=== PATIENT | female | born 1995 | race Caucasian/White ===

== ENCOUNTER → 2016-06-02 | Outpatient (CLI) | payer BC ==
[~2016-06-02] MED LIST: LEVO137T3 PO; SULF800T23 PO
[2016-06-02 15:20] LABS: THYROID STIMULATING HORMONE 2.39 uIu/ml (0.300-4.500)
== END | disposition home or self-care (01) ==
LOC: C.LAB1850 12:51
PROVIDERS: ATTEND Internal Medicine Endocrinology, Diabetes & Metabolism
DX: E03.9 Hypothyroidism, unspecified (principal); E06.3 Autoimmune thyroiditis

== ENCOUNTER → 2016-09-10 | Outpatient (CLI) | payer BC ==
[2016-09-10 14:47] LABS: THYROID STIMULATING HORMONE 2.04 uIu/ml (0.300-4.500)
== END | disposition home or self-care (01) ==
LOC: C.LAB1850 11:32
PROVIDERS: ATTEND Internal Medicine Endocrinology, Diabetes & Metabolism
DX: E03.9 Hypothyroidism, unspecified (principal); E06.3 Autoimmune thyroiditis

== ENCOUNTER 2016-10-22 06:49 | Emergency (ER) | payer BC ==
[~2016-10-22] VITALS: Ht 175.3 cm; Wt 62.1 kg
[2016-10-22 06:52] VITALS: Ht 175.3 cm; Wt 62.1 kg
[2016-10-22] MEDS ORDERED: SODIUM CHLORIDE 0.9% 1000ML 1,000 ML IV STA (07:30)
[2016-10-22] MEDS ORDERED: LEVO137T3 PO (07:37)
[2016-10-22 07:59] LABS: PREG INTERNAL NEGATIVE QC NEG CLEAR BACKGROUND; PREG INTERNAL POSITIVE QC POS CONTROL LINE
[2016-10-22 08:06] LABS: URINE APPEARANCE CLOUDY (CLEAR); URINE BILIRUBIN NEG (NEG); URINE COLOR DK YELLOW; URINE EPITHELIAL CELL AUTO >30 /lpf (0-5); URINE NITRITE NEG (NEG); URINE PH 5.5 (4.5-7.5); URINE SPECIFIC GRAVITY 1.028 (1.000-1.030); UROBILINOGEN NEG (NEG)
[2016-10-22 08:08] LABS: MANUAL MICROSCOPIC REQUIRED? NO; REVIEW REQ? YES
[2016-10-22 08:26] LABS: BASO % 0.1 %; BASO ABS # 0.02 K/uL (0-0.2); COMPLETE YES; EOS % 0.1 %; HEMATOCRIT 41.7 % (37-47); IG% 0.3 %; LYMPH % 14.6 %; LYMPH ABS # 2.03 K/uL (1.2-3.4); MEAN CELL VOLUME 87.8 fL (80-100); MEAN CORPUSCULAR HEMOGLOBIN 28.8 pg (25-34); MEAN CORPUSCULAR HGB CONC 32.9 g/dl (32-36); MEAN PLATELET VOLUME 9.9 fL (7.4-10.4); MONO % 8.2 %; NEUT % 76.7 %; PLATELET COUNT 208 K/uL (130-400); RED BLOOD COUNT 4.75 M/uL (4.2-5.4); WHITE BLOOD COUNT 13.95 K/uL (4.8-10.8)
--- NOTE | 2016-10-22 08:37 | DIAGNOSTIC IMAGING REPORT ---
CHEST 2 VIEWS ROUTINE CLINICAL HISTORY: Productive cough. Fever. COMPARISON STUDY: No previous studies for comparison. FINDINGS: Lung volumes are normal. Pectus excavatum deformity is noted which results in obscuration of the right heart border. There is no pneumothorax or pleural effusion. Cardiac size is at the upper limits of normal. There is no evidence of pulmonary edema. IMPRESSION: 1. No acute cardiopulmonary findings. 2. Pectus excavatum deformity. Electronically signed by: Cam Valdez M.D. 10/22/2016 8:36 AM Dictated Date/Time: 10/22/2016 8:35 AM
[2016-10-22 08:44] LABS: CREATININE 0.97 mg/dl (0.60-1.20); POTASSIUM 3.2 mmol/L (3.5-5.1)
[2016-10-22 08:49] LABS: CALCIUM 8.5 mg/dl (8.5-10.1)
[2016-10-22 09:04] VITALS: TEMP 37.4
[2016-10-22] MEDS ORDERED: SULFAMETHOXAZOLE/TRIMETHOPRIM DS 800/160MG TAB PO STA (09:20)
[2016-10-22] MEDS ORDERED: SULF800T23 PO (09:38)
--- NOTE | 2016-10-22 09:38 | EMERGENCY ROOM VISIT NOTE ---
History First contact with patient: 07:02 Chief Complaint: FEVER Stated Complaint: FEVER,? LEG INFECTION,STOMACH CRAMPS, MUSCLE ACHES History of Present Illness Patient is a 21-year-old white female with past medical history significant for hypothyroidism presents to the emergency department for evaluation of subjective fever and chills 2 days. Patient relates that she began to feel feverish, have chills and sweats Thursday afternoon, 2 days ago. She did not have a thermometer to record her temperature, and has been just taking Tylenol. She notes slight nausea, anorexia, fatigue and mild stomach cramping. She notes a cough for couple of weeks, that is occasionally productive, denies any chest pain or shortness of breath. She denies any ear pain, sinus or nasal congestion or sore throat. She denies any sick contacts or recent illnesses. No recent antibiotic use. She does note that she struck her left leg on the stake of a [place] 3 days ago, and has a small scratch/abrasion there. She cleansed it with peroxide and applied Neosporin, was unsure if it was infected and could be the source of her symptoms. She denies any dysuria, frequency or urgency. No vomiting or diarrhea. Last menstrual period was 3 weeks ago. She denies any headache, lightheadedness or dizziness. No neck pain or stiffness. Review of Systems Review of systems as per HPI. All other systems reviewed were negative. 10 systems reviewed. Past Medical/Surgical History Medical Problems: (1) Hypothyroidism Nos (2) Pectus excavatum Electronic medical records are reviewed and summarized as above/below. See Problem List. Social History Smoking Status: Never Smoker Alcohol Use: occasionally Marital Status: single Housing Status: lives alone Occupation Status: [employer] student Current/Historical Medications Scheduled Levothyroxine Sodium (Levothyroxine Sodium), 1 TAB PO DAILY Sulfa/Trimethoprim (Bactrim Ds 800MG/160MG), 1 TAB PO BID Allergies Coded Allergies: No Known Allergies (Unverified , 10/22/16) Physical Exam Vital Signs Date Time Temp Pulse Resp B/P Pulse Ox O2 Delivery O2 Flow Rate FiO2 10/22/16 09:56 80 20 135/69 100 10/22/16 09:04 37.4 10/22/16 08:40 73 18 121/56 100 Room Air 10/22/16 06:52 36.8 125 18 113/75 97 Room Air Physical Exam CONSTITUTIONAL: Patient is a well-appearing 21-year-old white female who is awake and alert and in no acute distress. Temperature 36.8C orally. She was initially tachycardic in triage with a heart rate of 125 beats per minute, in the exam room heart rate is in the 90s. EYES: Pupils equal, round, reactive to light and accommodation. EOMs intact without nystagmus. Sclera are anicteric. ENT: Tympanic membranes intact, with normal landmarks. External canals are clear. Oral and nasopharynx are clear. Mucous membranes are moist, no lesions , tongue and gums appear normal. NECK: No bruits auscultated. Supple without lymphadenopathy. No thyromegaly. No meningeal signs. Full active range of motion without discomfort. CARDIOVASCULAR: Regular rate and rhythm, with normal S1 and S2, no murmur or gallop or rub is heard. No carotid bruits auscultated. No JVD. Peripheral pulses easy to palpable. RESPIRATORY: Breath sounds equal and clear to auscultation without wheezes, rales, or rhonchi heard. Full and equal chest expansion without accessory muscle use or retractions. GI: Bowel sounds are present. Abdomen is soft, nontender, nondistended. No organomegaly. No pulsatile masses. No guarding or rebound. MUSCULOSKELETAL: Full range of motion of extremities x 4 with good strength. No cyanosis, edema, joint tenderness or swelling. No deformity. INTEGUMENTARY: Patient has a scabbed over abrasion on the anterior lateral aspect of the left leg. Slight surrounding erythema is noted, and area is slightly ecchymotic, but nontender to palpation. No increased warmth, induration or cellulitic changes noted. No lymphangitic streaking. NEUROLOGICAL: Alert, oriented, and cooperative. Cranial nerves, sensation and strength grossly intact. Pupils round, equal, and react to light, EOMs are full. LYMPH: No lymphadenopathy. Medical Decision & Procedures ER Provider Diagnostic Interpretation: CHEST 2 VIEWS ROUTINE CLINICAL HISTORY: Productive cough. Fever. COMPARISON STUDY: No previous studies for comparison. FINDINGS: Lung volumes are normal. Pectus excavatum deformity is noted which results in obscuration of the right heart border. There is no pneumothorax or pleural effusion. Cardiac size is at the upper limits of normal. There is no evidence of pulmonary edema. IMPRESSION: 1. No acute cardiopulmonary findings. 2. Pectus excavatum deformity. Laboratory Results 10/22/16 08:00 Red Blood Count 4.75, Mean Corpuscular Volume 87.8, Mean Corpuscular Hemoglobin 28.8, Mean Corpuscular Hemoglobin Concent 32.9, Mean Platelet Volume 9.9, Neutrophils (%) (Auto) 76.7, Lymphocytes (%) (Auto) 14.6, Monocytes (%) (Auto) 8.2, Eosinophils (%) (Auto) 0.1, Basophils (%) (Auto) 0.1, Neutrophils # (Auto) 10.71, Lymphocytes # (Auto) 2.03, Monocytes # (Auto) 1.14, Eosinophils # (Auto) 0.01, Basophils # (Auto) 0.02 10/22/16 08:00 Test 10/22/16 00:00 10/22/16 08:00 Urine Color DK YELLOW Urine Appearance CLOUDY (CLEAR) Urine pH 5.5 (4.5-7.5) Urine Specific [place] 1.028 (1.000-1.030) Urine Protein 2+ (NEG) Urine Glucose (UA) NEG (NEG) Urine Ketones 1+ (NEG) Urine Occult Blood 2+ (NEG) Urine Nitrite NEG (NEG) Urine Bilirubin NEG (NEG) Urine Urobilinogen NEG (NEG) Urine Leukocyte Esterase MODERATE (NEG) Urine WBC (Auto) >30 /hpf (0-5) Urine RBC (Auto) 10-30 /hpf (0-4) Urine Hyaline Casts (Auto) 0 /lpf (0-5) Urine Epithelial Cells (Auto) >30 /lpf (0-5) Urine Bacteria (Auto) 2+ (NEG) Urine Pathogenic Casts /lpf (0) Urine Test NEG (NEG) White Blood Count 13.95 K/uL (4.8-10.8) Red Blood Count 4.75 M/uL (4.2-5.4) Hemoglobin 13.7 g/dL (12.0-16.0) Hematocrit 41.7 % (37-47) Mean Corpuscular Volume 87.8 fL (80-100) Mean Corpuscular Hemoglobin 28.8 pg (25-34) Mean Corpuscular Hemoglobin Concent 32.9 g/dl (32-36) Platelet Count 208 K/uL (130-400) Mean Platelet Volume 9.9 fL (7.4-10.4) Neutrophils (%) (Auto) 76.7 % Lymphocytes (%) (Auto) 14.6 % Monocytes (%) (Auto) 8.2 % Eosinophils (%) (Auto) 0.1 % Basophils (%) (Auto) 0.1 % Neutrophils # (Auto) 10.71 K/uL (1.4-6.5) Lymphocytes # (Auto) 2.03 K/uL (1.2-3.4) Monocytes # (Auto) 1.14 K/uL (0.11-0.59) Eosinophils # (Auto) 0.01 K/uL (0-0.5) Basophils # (Auto) 0.02 K/uL (0-0.2) RDW Standard Deviation 43.8 fL (36.4-46.3) RDW Coefficient of Variation 13.7 % (11.5-14.5) Immature Granulocyte % (Auto) 0.3 % Immature Granulocyte # (Auto) 0.04 K/uL (0.00-0.02) Anion Gap 10.0 mmol/L (3-11) Est Creatinine Clear Calc Drug Dose 89.2 ml/min Estimated GFR () 96.1 Estimated GFR (Non- 82.9 BUN/Creatinine Ratio 17.0 (10-20) Calcium Level 8.5 mg/dl (8.5-10.1) Monoscreen POS (NEG) Medications Administered Medications (Trade) Dose Ordered Sig/Zully Route Start Time Stop Time Status Last Admin Dose Admin Sodium Chloride (Nss 1000ml) 1,000 ml @ 999 mls/hr Q1H1M STAT IV 10/22/16 07:30 10/22/16 08:30 DC 10/22/16 08:05 999 MLS/HR Trimethoprim/ Sulfamethoxazole (Septra Ds 800/ 160MG Tab) 1 tab NOW STAT PO 10/22/16 09:20 10/22/16 09:22 DC 10/22/16 09:50 1 TAB ED Course The patient was seen and examined as above. Her old records are reviewed. She had recent thyroid function studies performed about a month ago which indicates a euthyroid state. She presents to the emergency department with subjective fever and chills with associated body and muscle aches, fatigue, some minor upper respiratory symptoms and abdominal discomfort. She has a scratch/ abrasion on the lateral left leg which is well appearing and does not appear to be infected, and felt unlikely to be the source of her symptoms. IV lock was initiated. She was hydrated with normal saline solution. CBC with differential, BMP, Monospot, urinalysis and urine test were performed. Chest x-ray was performed and was unremarkable. Laboratory studies noted a white count of 13,900, with left shift, slight bandemia and an increased monocyte count. H&H is normal. Electrolytes are without significant abnormality. Urinalysis has findings concerning for infection with 2+ occult blood, moderate leukocyte esterase, greater than 30 WBCs and 10-30 RBCs per high -power field. There is 2+ bacteria noted. Urine culture is ordered and is pending. Urine test was negative. Monospot was also positive. Rapid strep was performed and was negative. Backup cultures are pending. All laboratory and diagnostic imaging studies were discussed with the patient. She is well appearing and afebrile on examination here. Was tachycardic initially, but this improved with IV hydration, remained afebrile in the emergency department during her workup. Chest x-ray is unremarkable. Urinalysis was concerning for UTI versus contamination and urine culture is pending. I suspect that the positive Monospot is more likely the source of her multiple vague symptoms. She is otherwise well appearing and nontoxic on examination. I do not suspect meningitis or encephalitis. Differential diagnoses also entertained included viral illness, pneumonia, sinusitis, UTI, pyelonephritis, among others. Patient will be placed on Bactrim empirically pending the urine culture. Regarding the UTI and mononucleosis, conservative care measures were discussed. She was educated on the worrisome signs or symptoms for which she should return to the emergency department. She is discharged to home in good condition. She was advised to follow-up with [facility] in the next week for further care and evaluation. Medical Decision See ED Course. Impression Primary Impression: Mononucleosis syndrome Additional Impression: UTI (urinary tract infection) Departure Information Prescriptions Sulfa/Trimethoprim (Bactrim Ds 800MG/160MG) Tab 1 TAB PO BID, #14 TAB Prov: Chio Li PA 10/22/16 Referrals No Doctor, Assigned (PCP) Patient Instructions My [facility] Additional Instructions Trimethoprim-Sulfamethoxazole(Bactrim DS): Take one pill twice daily for 7 days for your urine infection. All antibiotics can cause diarrhea. If this occurs and you feel worse or it does not resolve in 1-2 days follow up with your doctor or return to the Emergency Department as this could be signs of serious underlying problems. Any medication can cause an allergic reaction, stop the pills immediately and return to the ER for rash, hives, breathing difficulties, or swelling. Ibuprofen(Motrin, Advil): may be used for fever or pain. Use 600mg every six hours as needed. Take with food. Avoid using more than 2400mg in a 24 hour period. Do not use 2400mg per day for more than three consecutive days without physician direction. Prolonged inappropriate use can lead to stomach upset or ulcers. This is available over the counter and typically comes in 200mg tablets. (AND/OR) Acetaminophen(Tylenol): may be used for fever or pain. Use 1000mg every eight hours as needed. Avoid using more than 3000mg in a 24 hour period. This is available over the counter. Read all the package inserts or medication information paperwork provided. If you have any questions or concerns call your primary provider, pharmacist or the ER for assistance. Rest and drink plenty of fluids. Diet as tolerated. Avoid heavy lifting, strenuous exercise or contact sports x 2 weeks. Continue current medications. Return to the ER immediately for worsening or persistent abdominal/flank pain, vomiting, persistent fevers, increasing throat pain, inability to swallow, worsening of your condition, or as needed. Follow up with your primary physician within 2-3 days for a recheck of the current condition Problem Qualifiers
[2016-10-22 09:56] VITALS: BP 135/69; PULSE 80; O2SAT 100
--- NOTE | 2016-10-24 14:26 | Pharmacy Progress Note ---
ED Pharmacist Culture FollowUp Date of Service: Oct 24, 2016. Patient's Grp A Strep Backup Cx is growing Grp C beta-strep; this is uncertain significance. This organism can colonize or cause infection of the pharynx. She was dx with mononucleosis and UTI on 10/22 visit and discharged on Bactrim DS 1 PO BID x 7 days. The urine cx from that day is growing e coli (50,000 CFU/ ml from clean catch) and is pansensitive. Bactrim should cover this organism adequately. Bactrim likely would not cover the Grp C strep well in the throat cx if it is an infectious organism. She had not c/o sore throat during ED visit, nor did PE reveal signs of pharyngitis per provider's note. Attempted to contact the patient to determine if she is feeling better and to determine if a sore throat is present. There was no answer. Awaiting call back , I did leave a message.
== END 2016-10-22 09:58 | disposition home or self-care (01) ==
LOC: C.EDB 06:51
DX: B27.90 Infectious mononucleosis, unspecified without complication (principal); N39.0 Urinary tract infection, site not specified; E03.9 Hypothyroidism, unspecified; Z79.899 Other long term (current) drug therapy

== ENCOUNTER 2016-11-13 21:26 | Emergency (ER) | payer BC ==
[~2016-11-13] VITALS: Ht 175.3 cm; Wt 60.9 kg
[2016-11-13 21:28] VITALS: TEMP 36.6; Ht 175.3 cm; Wt 60.9 kg
--- NOTE | 2016-11-13 22:19 | EMERGENCY ROOM VISIT NOTE ---
History Report prepared by Kellen: Lefty Moon Under the Supervision of: Dr. Surjit Sutherland M.D. First contact with patient: 21:55 Chief Complaint: HEMATURIA Stated Complaint: MONO, BLOOD IN URINE, MUSCLE ACHES Nursing Triage Summary: pt c/o hematuria since last thursday. Tx here 3 weeks ago here for [place] and UTI, abx was completed 2 weeks ago. pt denies pain, burning. reports muscle achiness History of Present Illness The patient is a 21 year old female who presents to the Emergency Room with complaints of resolved hematuria starting a week ago. She rates her pain as a 3/ 10 in severity. The patient states that five weeks ago she was experiencing urinary symptoms and dysuria but admits that it had resolved shortly after. She reports that three weeks ago she was experiencing a fever which prompted her to report to the ED. The patient states that at the ED, they diagnosed her with mononucleosis and a urinary tract infection. The patient reports that she was given antibiotics and finished them a week following her visit. The patient states that a week ago she noticed constant hematuria, but admits that the blood resolved today. She admits to myalgias. The patient denies a history of kidney stones, a family history of kidney stones, previous hematuria, vaginal discharge, a possibly , and new medications. Source of History: patient Onset: a week ago Position: other (global) Symptom Intensity: Timing: resolved Modifying Factors (Worsening): urination Associated Symptoms: + fevers, + back pain, No urinary symptoms Review of Systems See HPI for pertinent positives & negatives. A total of 10 systems reviewed and were otherwise negative. Past Medical & Surgical Medical Problems: (1) Hypothyroidism Nos (2) Pectus excavatum Social History Smoking Status: Never Smoker Alcohol Use: occasionally Marital Status: single Housing Status: lives alone Occupation Status: [employer] student Current/Historical Medications Scheduled Levothyroxine Sodium (Levothyroxine Sodium), 1 TAB PO DAILY Allergies Coded Allergies: No Known Allergies (Unverified , 11/13/16) Physical Exam Vital Signs Date Time Temp Pulse Resp B/P (MAP) Pulse Ox O2 Delivery O2 Flow Rate FiO2 11/13/16 22:34 70 16 112/70 99 11/13/16 21:28 36.6 75 16 115/74 96 Room Air Physical Exam GENERAL: Patient is in no acute distress. HEENT: Mild throat erythema without exudate. No acute trauma, normocephalic atraumatic, mucous membranes moist, moderate nasal congestion, no scleral icterus. NECK: No stridor, no adenopathy, no meningismus, trachea is midline. LUNGS: Clear to auscultation bilaterally, no wheeze, no rhonchi, breath sounds equal. HEART: Without murmurs gallops or rubs, regular rate and rhythm. ABDOMEN: Soft, nontender, bowel sounds positive, no hernias, no peritonitis. EXTREMITIES: No cyanosis or edema, full range of motion of all the joints without pain or difficulty, no signs for acute trauma. NEUROLOGIC: Oriented x 3, no acute motor or sensory deficits, no focal weakness. SKIN: No rash, no jaundice, no diaphoresis. Back: No flank discomfort with percussion Medical Decision & Procedures Laboratory Results Test 11/13/16 22:00 Urine Color YELLOW Urine Appearance CLEAR (CLEAR) Urine pH 5.5 (4.5-7.5) Urine Specific [place] 1.011 (1.000-1.030) Urine Protein NEG (NEG) Urine Glucose (UA) NEG (NEG) Urine Ketones NEG (NEG) Urine Occult Blood NEG (NEG) Urine Nitrite NEG (NEG) Urine Bilirubin NEG (NEG) Urine Urobilinogen NEG (NEG) Urine Leukocyte Esterase NEG (NEG) Urine Test NEG (NEG) Laboratory results reviewed by me. ED Course 2199: The patient was evaluated in room B06. A complete history and physical exam was performed. 4: I reevaluated the patient and she is resting comfortably. I discussed results and discharge instructions: She verbalized understanding and agreement. The patient is ready for discharge. Medical Decision The differential diagnosis includes but is not limited to: renal stone, urinary tract infection, , renal mass, bladder lesion. Medication Reconciliation: I attest that I have personally reviewed the patient' s current medication list. Blood Pressure Screening: Patient was found to have normal blood pressure on screening and does not require follow-up. The patient presents with hematuria that seems to have resolved. She has no urgency or frequency. No back pain, no fever. There has been no kidney trauma. She did have a UTI a few weeks ago and finished her antibiotics. Urine dip and urinalysis are negative for infection or blood. testing is negative. The patient is stable for discharge and will talk with her doctors office about seeing a urologist for the reported hematuria. If worsening, she can report to the nearest ER. Impression Primary Impression: Hematuria Scribe Attestation The scribe's documentation has been prepared under my direction and personally reviewed by me in its entirety. I confirm that the note above accurately reflects all work, treatment, procedures, and medical decision making performed by me. Departure Information Dispostion Home / Self-Care Referrals No Doctor, Assigned (PCP) Forms HOME CARE DOCUMENTATION FORM, IMPORTANT VISIT INFORMATION, WORK / SCHOOL INSTRUCTIONS Patient Instructions My [facility] Additional Instructions call and set up a urology appt for the blood you saw in your urine urine testing today was clean--no infection or blood return for fever or pain or worsening symptoms
[2016-11-13 22:24] LABS: URINE APPEARANCE CLEAR (CLEAR); URINE BILIRUBIN NEG (NEG); URINE COLOR YELLOW; URINE NITRITE NEG (NEG); URINE PH 5.5 (4.5-7.5); URINE SPECIFIC GRAVITY 1.011 (1.000-1.030); UROBILINOGEN NEG (NEG)
[2016-11-13 22:27] LABS: MANUAL MICROSCOPIC REQUIRED? NO; REVIEW REQ? NO
[2016-11-13 22:34] VITALS: BP 112/70; PULSE 70; O2SAT 99
== END 2016-11-13 22:48 | disposition home or self-care (01) ==
LOC: C.EDB 21:27
DX: R31.9 Hematuria, unspecified (principal); Z87.440 Personal history of urinary (tract) infections; Z86.19 Personal history of other infectious and parasitic diseases; E03.9 Hypothyroidism, unspecified; Z79.899 Other long term (current) drug therapy